=== PATIENT | male | born 1950 | race Caucasian/White ===

== ENCOUNTER 2017-01-20 06:00 | Inpatient (IN) | payer OTHER ==
[2017-01-10 11:27] VITALS: BMI 31.0
--- NOTE | 2017-01-18 17:25 | History and Physical ---
History & Physical Date Jan 18, 2017. Chief Complaint LEFT HIP PAIN History of Present Illness The patient is a 66 year old male with complaints of left hip and groin pain for years. Pt has tried nsaids, pt, and injections. Nothing has helped. Still limping and cant do adls. Pt is ready for Left krupa. Additional History Hepatic Disease: No Endocrine Disorder: No Kidney Disease: No Hypertension: No Heart Disease: No Bleeding Tendencies: No Infectious Diseases: No Allergies Coded Allergies: No Known Allergies (Unverified , 01/10/17) Home Medications Scheduled Acetaminophen (Tylenol), 1,000 MG PO PRN Ibuprofen (Advil), 400 MG PO PRN Naproxen (Aleve), 220 MG PO HS Scheduled PRN Cyclobenzaprine Hcl (Flexeril), 10 MG PO TID PRN for PRN Physical Examination Skin: warm/dry, no rash Eyes: normal inspection, EOMI, sclerae normal ENT: normal ENT inspection, pharynx normal Head: normocephalic, atraumatic Neck: supple, no adenopathy, trachea midline Respiratory/Chest: lungs clear, normal breath sounds, no respiratory distress Cardiovascular: regular rate, rhythm, no edema, no murmur Abdomen / GI: normal bowel sounds, non tender Back: normal inspection Extremities: normal inspection, normal range of motion, + pertinent finding ( terrible pain with rom left hip) Neurologic/Psych: no motor/sensory deficits, alert, normal reflexes, oriented x 3 Diagnosis DJD LEFT HIP Plan of Treatment PLAN IS ADMIT AND UNDERGO LEFT KRUPA.
[2017-01-20] VITALS (10 sets, daily range): BP systolic 134–158; BP diastolic 84–94; PULSE 66–83; TEMP 36.5–36.8; O2SAT 94–100; Ht 177.8 cm; Wt 100.0 kg
[~2017-01-20] VITALS: Ht 177.8 cm; Wt 100.0 kg
[~2017-01-20 06:00] MED LIST: ACET-1256 PO; ACETAMINOPHEN 500 MG TAB PO SCH; CEFAZOLIN 2000 MG/60 ML D5W 60 ML IV SCH; CYCL10TA6 PO; CeleBREX 200 MG CAP PO SCH; DEXAMETHASONE 4 MG TAB PO SCH; FAMOTIDINE 20 MG TAB PO SCH; IBUP-1050 PO; LACTATED RINGER'S 1000ML 1,000 ML IV SCH; LACTATED RINGER'S 1000ML 500 ML IV ONE; LACTATED RINGER'S 1000ML IV SCH; METOCLOPRAMIDE HCL 10 MG TAB PO SCH; NAPR1TAB9 PO; ROPIVACAINE 5MG/ML 30 ML 150 MG, BUPIVACAINE/EPINEPHR 0.5% MPF 30 ML, KETOROLAC TROMETH... INFIL SCH
[2017-01-20] MEDS: TRANEXAMIC ACID INJ 1,000 MG in SODIUM CHLORIDE 0.9% 100ML 100 ML IV SCH ×2 (06:30→07:50)
--- NOTE | 2017-01-20 06:50 | History & Physical Bridge Note ---
H&P Re-Evaluation Bridge Note: I have examined the patient, reviewed the History & Physical and in the interval since the performance of the History & Physical I have noted the following changes of clinical significance: No changes noted
[2017-01-20] MEDS ORDERED: ORTHO JOINT ANESTHETIC ONE (07:01)
[2017-01-20] MEDS ORDERED: BACITRACIN 50000 UNIT VIAL ONE (07:02)
[2017-01-20] MEDS ORDERED: BUPIVACAINE 0.5 % 5 MG/1 ML PF 10ML VIAL ONE (07:41)
[2017-01-20] MEDS ORDERED: FENTANYL CITRATE INJ 50 MCG/1 ML 2 ML VIAL ONE (07:59)
[2017-01-20] MEDS ORDERED: MIDAZOLAM HCL 1 MG/ML 2ML VIAL ONE (07:59)
[2017-01-20] MEDS ORDERED: LIDOCAINE HCL 2% 2 ML VIAL (20MG/ML) ONE (07:59)
[2017-01-20] MEDS ORDERED: PROPOFOL IV EMULSION 10 MG/ML 20 ML VIAL IV ONE ×2 (07:59→09:05)
[2017-01-20] MEDS ORDERED: FLUMAZENIL 0.1 MG/1 ML 10 ML VIAL IV PRN (08:00)
[2017-01-20] MEDS ORDERED: EpHEDrine SULFATE INJ 50 MG/ML AMP IV PRN (08:00)
[2017-01-20] MEDS ORDERED: HYDROmorphone INJ 2 MG/ML SYR/VIAL IV PRN (08:00)
[2017-01-20] MEDS ORDERED: MEPERIDINE HCL 25 MG/ML CARP IV PRN (08:00)
[2017-01-20] MEDS ORDERED: FENTANYL CITRATE INJ 50 MCG/1 ML 2 ML VIAL IV PRN (08:00)
[2017-01-20] MEDS ORDERED: ONDANSETRON INJ 2 MG/ML 2 ML VIAL IV PRN ×2 (08:00→09:45)
[2017-01-20] MEDS ORDERED: NALOXONE HCL 0.4 MG/1 ML VIAL/CARP IV PRN (08:00)
[2017-01-20] MEDS ORDERED: ATROPINE SULFATE 0.1 MG/ML 5ML SYR IV PRN (08:00)
[2017-01-20] MEDS ORDERED: PHENYLEPHRINE 100MCG/ML 5ML SYR IV PRN (08:00)
[2017-01-20] MEDS ORDERED: LABETALOL HCL IV 5 MG/ML 20ML IV PRN (08:00)
[2017-01-20] MEDS ORDERED: POVIDONE-IODINE OP SOLN 30 ML BTL ONE (08:26)
--- NOTE | 2017-01-20 09:33 | [facility] Operative Report ---
Operative Report Operative Date Jan 20, 2017. Pre-Operative Diagnosis Degenerative Joint Disease, Left hip Post-Operative Diagnosis Degenerative Joint Disease, Left hip Procedure(s) Performed Left Total Hip Arthroplasty Surgeon Saud Hot Bread Baker Surgeon(s) Jacky Peralta PA-C Estimated Blood Loss 75ML Findings As above Specimens A: Femoral Head Complication(s) None Description of Procedure IMPLANTS USED: Melissa size 56 mm PSL ACOSTA-coated acetabular cup, 1 screw, an Accolade 2 size 4 stem with a 127 neck and a 46 mm M.D.M liner, 28 mm +0 ceramic INDICATIONS: pleasant male who has unfortunately failed all forms of conservative measures. Therefore, they have has decided to undergo elective surgical intervention. All risks and benefits of the surgery were discussed with the patient and the family in entirety. PROCEDURE: The patient was brought to the operating room and properly identified by myself, anesthesia, and staff. Patient was given a spinal anesthetic and placed on the operating table with the left hip up. The hip was then prepped and draped in the standard orthopedic fashion. We made a standard posterolateral approach over the greater trochanteric area. We then dissected down to subcutaneous tissue until the fascia was identified. We incised the fascia in line with the skin incision. We then split the gluteus johanne muscles with finger dissection. We then put the Charnley retractor in place. We placed the retractor underneath the gluteus medius to expose the piriformis. The piriformis was then tagged with a tag suture and released from the insertion from the greater trochanteric area with the use of electrocautery. We then performed a T capsulotomy and the femoral head and neck were atraumatically dislocated. We then performed femoral neck osteotomy at the pre- template site. We removed the femoral head and neck without difficulty. We then placed the retractor around the acetabulum. We then began to ream the acetabulum to the appropriate size. We then impacted the cup into place and had a very good fixation within the pelvis. We then put the liner in place as well. Then using multiple size approaches from the Accolade 2 system a size #4 fit very nicely in the proximal femur. I then put trial components in place. WE had very good range of motion, excellent stability, and excellent leg length equality. We removed the trial components and irrigated the wound. We then impacted the components in place and irrigated the wound once more. We then closed the capsule and fascia with a 0 Vicryl suture, the deep dermis with 2-0 Vicryl suture, and finally the skin with a running 3-0 Vicryl subcuticular stitch. A sterile dressing was applied. The patient was taken to the recovery room in stable condition. Due to the complex nature of the procedure, the entire surgery was performed with the operational assistance of [the (MARYJO)]. The recruitment assistant was under direct supervision, was involved in the actual performance of all aspects of the surgical procedure including hemostasis, tissue retraction and incision, instrument management, patient positioning, and wound closure. I attest to the content of the Intraoperative Record and any orders documented therein. Any exceptions are noted below.
[2017-01-20] MEDS ORDERED: PHENYLEPHRINE 100MCG/ML 5ML SYR ONE (09:40)
[2017-01-20] MEDS ORDERED: ZOLPIDEM TARTRATE 5 MG TAB PO PRN (09:45)
[2017-01-20] MEDS ORDERED: ALUMINUM/MAGNESIUM/SIMETH (MAALOX MAX) 30 ML UDC PO PRN (09:45)
[2017-01-20] MEDS ORDERED: BISACODYL 10 MG SUPP PR PRN (09:45)
[2017-01-20] MEDS ORDERED: MAGNESIUM HYDROXIDE SUSP 30 ML UDC PO PRN (09:45)
--- NOTE | 2017-01-20 10:40 | Anesthesiology Progress Note ---
Anesthesia Post Op Note Date & Time Jan 20, 2017 at 10:40 Vital Signs Pain Intensity: 0 Vital Signs Past 12 Hours Date Time Temp Pulse Resp B/P (MAP) Pulse Ox O2 Delivery O2 Flow Rate FiO2 01/20/17 10:35 58 16 131/84 98 Nasal Cannula 2 01/20/17 10:25 63 16 122/76 100 Oxymask 10 01/20/17 10:15 63 16 120/95 100 Oxymask 10 01/20/17 10:08 36.4 66 16 117/76 97 Oxymask 10 01/20/17 06:50 36.6 83 20 158/93 98 Room Air Notes Mental Status: alert / awake / arousable, participated in evaluation Pt Amnestic to Procedure: Yes Nausea / Vomiting: adequately controlled Pain: adequately controlled Airway Patency, RR, SpO2: stable & adequate BP & HR: stable & adequate Hydration State: stable & adequate Neuraxial Anesthesia: was administered, sensory block is resolving Anesthetic Complications: no major complications apparent
[2017-01-20] MEDS ORDERED: NURSING VERBAL MED ORDER ONE (11:45)
[2017-01-20] MEDS: D5W AND 1/2NSS 1,000 ML IV SCH ×2 (12:29→21:52)
[2017-01-20] MEDS: ACETAMINOPHEN 500 MG TAB PO SCH ×2 (13:38→21:53)
[2017-01-20] MEDS ORDERED: TRANEXAMIC ACID INJ 1,000 MG in SODIUM CHLORIDE 0.9% 100ML 100 ML IV SCH (15:30)
[2017-01-20] MEDS: CEFAZOLIN IV 2,000 MG in DEXTROSE 5% 50ML 50 ML IV SCH ×2 (16:33→23:34)
[2017-01-20] MEDS: TRAMADOL HCL 50 MG TAB PO PRN (19:36)
[2017-01-20] MEDS: DOCUSATE SODIUM 100 MG CAP PO SCH (21:52)
[2017-01-20] MEDS: ASPIRIN 81 MG ECTAB PO SCH (21:52)
[2017-01-21 03:50] VITALS: BP 153/84; PULSE 80; TEMP 36.7; O2SAT 97
[2017-01-21] MEDS: TRAMADOL HCL 50 MG TAB PO PRN ×2 (04:03→13:25)
[2017-01-21] MEDS: ACETAMINOPHEN 500 MG TAB PO SCH (05:42)
[2017-01-21 06:14] LABS: BASO % 0.1 %; BASO ABS # 0.01 K/uL (0-0.2); COMPLETE YES; EOS % 0.3 %; IG% 0.4 %; LYMPH % 9.3 %; LYMPH ABS # 1.05 K/uL (1.2-3.4); MEAN CELL VOLUME 83.2 fL (80-100); MEAN CORPUSCULAR HEMOGLOBIN 30.4 pg (25-34); MEAN CORPUSCULAR HGB CONC 36.5 g/dl (32-36); MEAN PLATELET VOLUME 8.9 fL (7.4-10.4); MONO % 10.3 %; NEUT % 79.6 %; PLATELET COUNT 183 K/uL (130-400); RED BLOOD COUNT 4.81 M/uL (4.7-6.1); WHITE BLOOD COUNT 11.29 K/uL (4.8-10.8)
--- NOTE | 2017-01-21 07:04 | Orthopedic Progress Note ---
Orthopedic Progress Note Date of Service Jan 21, 2017. Subjective Post OP Day: 1 Reports: feeling well, Denies: complaints Objective calves soft nontender, N/V intact, hip located, dressing C/D/I, A&O x3, toes mobile Date Time Temp Pulse Resp B/P (MAP) Pulse Ox O2 Delivery O2 Flow Rate FiO2 01/21/17 03:50 36.7 80 16 153/84 (107) 97 Room Air 01/20/17 23:45 36.6 75 18 149/89 (109) 97 Room Air 01/20/17 23:40 Room Air 01/20/17 16:30 98 Room Air 01/20/17 16:03 98 Room Air 01/20/17 15:13 36.8 75 18 150/89 (109) 98 Nasal Cannula 2.0 01/20/17 14:00 36.6 80 16 154/91 (112) 98 Nasal Cannula 2.0 01/20/17 13:00 36.6 83 16 150/94 (112) 98 Room Air 01/20/17 12:00 36.8 66 16 145/88 (107) 100 Nasal Cannula 2.0 01/20/17 11:30 36.5 66 16 147/92 (110) 100 Nasal Cannula 2.0 01/20/17 11:10 Nasal Cannula 2.0 01/20/17 11:10 Nasal Cannula 2.0 01/20/17 11:00 36.6 67 16 134/84 (101) 94 Nasal Cannula 2.0 01/20/17 10:45 36.2 01/20/17 10:35 58 16 131/84 98 Nasal Cannula 2 01/20/17 10:25 63 16 122/76 100 Oxymask 10 01/20/17 10:15 63 16 120/95 100 Oxymask 10 01/20/17 10:08 36.4 66 16 117/76 97 Oxymask 10 Laboratory Results 24 Hours: Test 01/21/17 06:04 White Blood Count 11.29 K/uL Red Blood Count 4.81 M/uL Hemoglobin 14.6 g/dL Hematocrit 40.0 % Mean Corpuscular Volume 83.2 fL Mean Corpuscular Hemoglobin 30.4 pg Mean Corpuscular Hemoglobin Concent 36.5 g/dl Platelet Count 183 K/uL Mean Platelet Volume 8.9 fL Neutrophils (%) (Auto) 79.6 % Lymphocytes (%) (Auto) 9.3 % Monocytes (%) (Auto) 10.3 % Eosinophils (%) (Auto) 0.3 % Basophils (%) (Auto) 0.1 % Neutrophils # (Auto) 9.00 K/uL Lymphocytes # (Auto) 1.05 K/uL Monocytes # (Auto) 1.16 K/uL Eosinophils # (Auto) 0.03 K/uL Basophils # (Auto) 0.01 K/uL Assessment & Plan Assessment: POD 1 s/p Left KRUPA Plan: PT/OT Plan for Home Health Services Possible dc home today Inhouse Planning Pain Management: Ultram, PO Tylenol DVT Prophylaxis: TEDs, SCDs, ASA Discharge Planning Discharge Planning: home with home health Pain Management: Ultram, PO Tylenol DVT Prophylaxis: TEDs, ASA Therapy: Physical Therapy
--- NOTE | 2017-01-21 07:14 | Discharge Instructions ---
Discharge Instructions Date of Service Jan 21, 2017. Admission Reason for Admission: Left Hip Osteoarthritis Discharge Discharge Diagnosis / Problem: Left Hip Djd Discharge Goals Goal(s): Decrease discomfort, Improve function, Increase independence Activity Recommendations Activity Limitations: per Instructions/Follow-up section Weightbearing Status: Left weightbearing (as tolerated) . Instructions / Follow-Up Instructions / Follow-Up PLEASE FOLLOW PRINTED INSTRUCTION SHEETS LABELED "DO'S AND DON'TS FOR NEW HIP" AND "DR GIBSON'S TOTAL HIP DISCHARGE INSTRUCTIONS" Current Hospital Diet Patient's current hospital diet: Regular Diet Discharge Diet Recommended Diet: Regular Diet Procedures Procedures Performed: Left Hip Total Hip Arthroplasty Pending Studies Studies pending at discharge: no Medical Emergencies . Who to Call and When: Medical Emergencies: If at any time you feel your situation is an emergency, please call 911 immediately. . Non-Emergent Contact Non-Emergency issues call your: Surgeon Call Non-Emergent contact if: temperature is above 101.5, your pain is not controlled, your pain is worsening, wound has increased drainage, wound has increased redness . "Provider Documentation" section prepared by Jacky Peralta. . VTE Core Measure Inpt VTE Proph given/why not?: Other Anticoagulation, T.E.D. Stockings, SCD's [place] Drug Monitoring Program Search Results: patient reviewed within database, no issues identified
[2017-01-21] MEDS ORDERED: ULT50X PO (07:18)
[2017-01-21] MEDS ORDERED: ACET-1256 PO (07:18)
[2017-01-21] MEDS ORDERED: ASPEC81 PO (07:18)
[2017-01-21] MEDS ORDERED: DEXAMETHASONE INJ 10 MG in SYRINGE 0 ML IV SCH (07:30)
[2017-01-21 07:54] VITALS: BP 154/93; PULSE 79; TEMP 36.9; O2SAT 97
[2017-01-21] MEDS: DOCUSATE SODIUM 100 MG CAP PO SCH (08:25)
[2017-01-21] MEDS: D5W AND 1/2NSS 1,000 ML IV SCH (08:25)
[2017-01-21] MEDS: ASPIRIN 81 MG ECTAB PO SCH (08:25)
[2017-01-21 10:06] VITALS: BP 154/93; PULSE 79; TEMP 36.9; O2SAT 97
--- NOTE | 2017-01-23 10:15 | DISCHARGE SUMMARY ---
DISCHARGE DIAGNOSIS: Degenerative joint disease, left hip. CONSULTS: None. COMPLICATIONS: None. PROCEDURES: Left total hip arthroplasty performed by Dr. Villavicencio on 01/20/2017. BRIEF HISTORY: As dictated in history and physical. HOSPITAL SUMMARY: The patient was admitted on the above date and had the above-noted surgery performed which he tolerated well. On the first postoperative day, he was feeling well and had no complaints. Calves were soft, nontender, neurovascularly intact. Dressings clean, dry and intact. Toes were mobile. Vital signs were stable. He was afebrile and hemoglobin was 14.6. He was started on physical therapy protocol and continued on DVT prophylaxis and pain management. He was progressing well with his physical therapy and remaining stable and it was felt he was felt he could be discharged to home on 01/21/2017 with plans for outpatient PT. For further review, please see chart. LAB AND X-RAY DATA: As per chart. DISCHARGE INSTRUCTIONS: The patient was discharged to home in satisfactory condition on 01/21/2017. DIET: Regular. ACTIVITY: Weightbearing as tolerated left lower extremity. Follow Dr. Villavicencio's KRUPA discharge instruction sheets and the hip do's and don't instruction sheet as written. Follow up with Dr. Villavicencio in 10-14 days. The patient to call for appointment if one has not been made for you. DISCHARGE MEDICATIONS: Aspirin 81 mg p.o. b.i.d., tramadol 50-100 mg p.o. q. 4 hours p.r.n., resume Flexeril 10 mg p.o. t.i.d. p.r.n., acetaminophen 1000 mg p.o. q. 8 hours for 21 days. Stop taking ibuprofen or naproxen.
== END 2017-01-21 13:50 | disposition home or self-care (01) | DRG 470 ==
LOC: C.ACU 06:00 → C.3E 07:20 → ENRESERV 10:40
PROVIDERS: ADMIT Orthopaedic Surgery; ATTEND Orthopaedic Surgery
PROC: 0SRB03A Replacement of Left Hip Joint with Ceramic Synthetic Substitute, Uncemented, Open Approach (ICD-10-PCS; principal; 2017-01-20 08:00)
DX: M16.12 Unilateral primary osteoarthritis, left hip (principal)